=== PATIENT | male | born 1955 | race Caucasian/White ===

== ENCOUNTER 2017-09-03 02:40 | Emergency (ER) | payer OTHER ==
[~2017-09-03] VITALS: Ht 170.2 cm; Wt 99.8 kg
[2017-09-03 03:01] VITALS: BP 123/79
--- NOTE | 2017-09-03 03:30 | NUR ---
62 Y/O F W/C/O FREQUENCY/URGENCY WITH URINATION, AND HEMATURIA X YESTERDAY. DENIES ANY MED HX. NO OTHER S/S OF DISTRESS NOTED. ER MADE AWARE.
--- NOTE | 2017-09-03 03:33 | NUR ---
PT TAKEN TO BED 12
[2017-09-03] MEDS ORDERED: PHENAZOPYRIDINE 100 MG TAB PO ONE (03:45)
[2017-09-03] MEDS ORDERED: LEVOFLOXACIN 750 MG/D5W PREMIX 150 ML IV ONE (03:55)
[2017-09-03] MEDS ORDERED: NACL 0.9% 1,000 ML IV ONE (03:55)
[2017-09-03 04:30] LABS: HEMATOCRIT 40.3 % (36-52); HEMOGLOBIN 13.7 g/dL (12.0-18.0); MEAN CORPUSCULAR HEMOGLOBIN 30 pg (27-31); MEAN CORPUSCULAR HGB CONC 34 g/dL (33-37); MEAN CORPUSCULAR VOLUME 87 fL (80-94); PLATELET COUNT (AUTO) 164 K/uL (140-450); RED BLOOD CELL COUNT(AUTO) 4.62 MIL/uL (4.20-6.10); WHITE BLOOD COUNT (AUTO) 15.8 K/uL (4.8-10.8)
[2017-09-03 04:44] LABS: ANION GAP 9.9 (8-16); CARBON DIOXIDE 27.3 mmol/L (21-32); CREATININE 1.1 mg/dL (0.7-1.3); POTASSIUM 3.2 mmol/L (3.5-5.1)
[2017-09-03 04:55] LABS: PROTHROMBIN TIME 10.3 secs (10.8-13.4)
[2017-09-03 04:57] LABS: BILIRUBIN,URINE 1+ (NEGATIVE); BLOOD, URINE 3+ (NEGATIVE); LEUKOCYTE ESTERASE ,URINE NEGATIVE (NEGATIVE); NITRITE, URINE NEGATIVE (NEGATIVE); PH,URINE 5.5 (5.0-9.0); UGLUCOSE NEGATIVE (NEGATIVE)
[2017-09-03 04:58] LABS: LYMPHOCYTES % (MANUAL) 14 % (20-46); MONOCYTES % (MANUAL) 5 % (5-12)
[2017-09-03 05:15] LABS: APPEARANCE,URINE BLOODY (CLEAR); COLOR,URINE BLOODY (YELLOW)
[2017-09-03 05:17] LABS: RBC,URINE TOO NUMEROUS TO COUN /HPF (0-5)
[2017-09-03 05:18] LABS: WBC,URINE TOO MANY TO COUNT /HPF (0-5)
--- NOTE | 2017-09-03 06:10 | NUR ---
ENDING TIME FOR LEVOFLOXACIN WAS 0610, AND NS 0610 TOTAL VOLUME INFUSED 220.
[2017-09-03 06:35] VITALS: BP 111/67
--- NOTE | 2017-09-03 06:35 | NUR ---
Patient discharged with v/s stable. Written and verbal after care instructions given and explained. Patient alert, oriented and verbalized understanding of instructions. Ambulatory with steady gait. All questions addressed prior to discharge. ID band removed. Patient advised to follow up with PMD. Rx of Cipro and Pyridium given. Patient educated on indication of medication including possible reaction and side effects. Opportunity to ask questions provided and answered.
[2017-09-03] MEDS ORDERED: ASPI325T49 PO (21:18)
[2017-09-03] MEDS ORDERED: METF500T PO (21:18)
[2017-09-03] MEDS ORDERED: METO50TE2 PO (21:18)
[2017-09-03] MEDS ORDERED: LISI-420 PO (21:25)
[2017-09-03] MEDS ORDERED: ASPI81EC97 PO (21:25)
[2017-09-03] MEDS ORDERED: CIPR500T4 PO (21:25)
[2017-09-03] MEDS ORDERED: PHEN-1749 PO (21:25)
[2017-09-03] MEDS ORDERED: ZONI50CA2 PO (21:25)
[2017-09-03] MEDS ORDERED: ORE25 PO (21:25)
[2017-09-03] MEDS ORDERED: SYN.05 PO (21:25)
[2017-09-03] MEDS ORDERED: PAM25 PO (21:25)
== END 2017-09-03 06:35 | disposition home or self-care (01) ==
LOC: MED 02:40
DX: N30.81 Other cystitis with hematuria (principal); Z79.899 Other long term (current) drug therapy; Z79.82 Long term (current) use of aspirin; Z79.84 Long term (current) use of oral hypoglycemic drugs
CPT/HCPCS: 36415; 80048; 81001; 82948; 85025; 85610; 85730; 87086; 87186; 96365; 96366; 99285; J1956; J7030; 99284

== ENCOUNTER 2017-09-03 13:09 | Inpatient (IN) | payer OTHER ==
[~2017-09-03] VITALS: Ht 170.2 cm; Wt 98.5 kg
[2017-09-03 14:01] VITALS: BP 115/75
--- NOTE | 2017-09-03 17:19 | NUR ---
PATIENT TO BED #10 VIA W/C WITH
--- NOTE | 2017-09-03 17:40 | NUR ---
PATIENT SEEN EARLIER IN THE AM FOR BLOOD IN THE URINE, INSTRUCTED TO COME BACK FOR FEVER, SOB, SHAKINESS, BURNING URINATION 02/15; HX; HTN, DM, RX; PHENAZOPYRIDINE, CIPRO, METROPOLOL, METFORMIN, ASPIRIN, LEVOTHYROXINE, LISINOPRIL. PT STATES TOOK CIPRO AND PHENACOPYRIDINE AT 1100 . AAOX4 WITH EVEN AND STEADY GAIT; LUNGS CLEAR BL; HR EVEN AND REGULAR; SOB NOTED, DENIES CHEST PAIN, NAUSEA NOTED, SKIN IS PINK/WARM/DRY; TEMP 99.6F AT THIS TIME, ST ON MONITOR. PATIENT POSITIONED FOR COMFORT; HOB ELEVATED; BEDRAILS UP X2; BED DOWN. ER MD MADE AWARE OF PT STATUS.
[2017-09-03] MEDS ORDERED: NACL 0.9% 2,000 ML IV ONE (18:45)
--- NOTE | 2017-09-03 18:52 | NUR ---
XRAY AT BEDSIDE
--- NOTE | 2017-09-03 19:15 | NUR ---
REPORT GIVEN TO CJ RENEE AT BEDSIDE, PT IS IN STABLE CONDITION AT THIS TIME.
[2017-09-03] MEDS ORDERED: cefTRIAXone 1,000 MG VIAL ONE (19:36)
[2017-09-03 19:45] LABS: HEMATOCRIT 40.8 % (36-52); HEMOGLOBIN 13.8 g/dL (12.0-18.0); MEAN CORPUSCULAR HEMOGLOBIN 29 pg (27-31); MEAN CORPUSCULAR HGB CONC 34 g/dL (33-37); MEAN CORPUSCULAR VOLUME 85 fL (80-94); PLATELET COUNT (AUTO) 154 K/uL (140-450); RED BLOOD CELL COUNT(AUTO) 4.77 MIL/uL (4.20-6.10); RED CELL DISTRIBUTION WIDTH 12.6 % (11.6-13.7); WHITE BLOOD COUNT (AUTO) 17.8 K/uL (4.8-10.8)
[2017-09-03 20:10] LABS: APPEARANCE,URINE CLEAR (CLEAR); BILIRUBIN,URINE NEGATIVE (NEGATIVE); BLOOD, URINE 2+ (NEGATIVE); COLOR,URINE YELLOW (YELLOW); LEUKOCYTE ESTERASE ,URINE NEGATIVE (NEGATIVE); NITRITE, URINE POSITIVE (NEGATIVE); UGLUCOSE TRACE (NEGATIVE)
[2017-09-03 20:11] LABS: ALBUMIN 3.8 g/dL (3.4-5.0); ANION GAP 14.7 (8-16); CARBON DIOXIDE 23.2 mmol/L (21-32); CREATININE 1.1 mg/dL (0.7-1.3); TOTAL BILIRUBIN 1.3 mg/dL (0.0-1.0)
[2017-09-03 20:12] LABS: LYMPHOCYTES % (MANUAL) 6 % (20-46); MONOCYTES % (MANUAL) 4 % (5-12)
--- NOTE | 2017-09-03 20:17 | NUR ---
CRITICAL LAB RESULTS RECEIVED. TROPONIN=0.113 AND K=2.9. DR. PITTMAN MADE AWARE.
[2017-09-03 20:19] LABS: POTASSIUM 2.9 mmol/L (3.5-5.1)
[2017-09-03 20:20] LABS: CREATINE KINASE MB 0.9 ng/mL (0-3.6)
[2017-09-03 20:28] LABS: RBC,URINE 3-10 (FEW) /HPF (0-5)
[2017-09-03] MEDS: NACL 0.9% 1,000 ML IV SCH (20:58)
[2017-09-03] MEDS ORDERED: HYDROcodone/APAP 5/325 MG 1 TAB TAB PO PRN ×2 (21:00)
[2017-09-03] MEDS ORDERED: ONDANSETRON 4 MG/2 ML VIAL IVP PRN (21:00)
[2017-09-03] MEDS ORDERED: METF500T PO (21:18)
[2017-09-03] MEDS ORDERED: METO50TE2 PO (21:18)
[2017-09-03] MEDS ORDERED: ASPI325T49 PO (21:18)
--- NOTE | 2017-09-03 21:20 | NUR ---
PT TAKEN TO CT VIA W/C.
[2017-09-03] MEDS ORDERED: LISI-420 PO (21:25)
[2017-09-03] MEDS ORDERED: CIPR500T4 PO (21:25)
[2017-09-03] MEDS ORDERED: SYN.05 PO (21:25)
[2017-09-03] MEDS ORDERED: PAM25 PO (21:25)
[2017-09-03] MEDS ORDERED: ASPI81EC97 PO (21:25)
[2017-09-03] MEDS ORDERED: ZONI50CA2 PO (21:25)
[2017-09-03] MEDS ORDERED: PHEN-1749 PO (21:25)
[2017-09-03] MEDS ORDERED: ORE25 PO (21:25)
--- NOTE | 2017-09-03 21:40 | NUR ---
Patient will be admitted to care of DR. CAMP. Admited to TELEMETRY. Will go to room 112A. Belongings list completed. BED SIDE REPORT GIVEN TO CJ SOUZA. AT BED SIDE. PT WITHOUT ACUTE DISTRESS AT THIS TIME.
[2017-09-03 21:50] VITALS: BP 126/64
--- NOTE | 2017-09-03 21:50 | NUR ---
PT ARRIVED ON THE UNIT VIA GURNEY, NO S/S OF DISTRESS NOTED. PT IN STABLE CONDITION. PT AAOX4, ON ROOM AIR. IV ON R HAND 20G, PATENT AND INTACT. SKIN INTACT, WARM AND DRY TO TOUCH. LUNGS CLEAR BILATERALLY, BOWEL SOUNDS PRESENT. PT CAME TO ER WITH C/O BURNING WITH URINATION AND STATED HE WAS GIVEN MEDICATION AND SENT HOME, THEN CAME BACK TO THE ER WITH C/O N/V AND FEVER. PT DX WITH UTI AND ELEVATED TROPONIN. INITIAL ASSESSMENT COMPLETED. PLAN OF CARE DISCUSSED WITH PT AT THIS TIME, VERBALIZED UNDERSTANDING. ALL SAFETY PRECAUTIONS MET, BOARD UPDATED,CALL LIGHT WITHIN REACH, WILL CONTINUE TO MONITOR.
--- NOTE | 2017-09-03 22:00 | NUR ---
PAGED DR. CAMP
--- NOTE | 2017-09-03 22:10 | NUR ---
DR. CAMP PAGED BACK, NOTIFIED HIM OF PTS POTASSIUM 2.9, NEW ORDERS TO BE PLACED, NOTIFIED HIM OF PTS HOME MEDS, AND NOTIFIED HIM THAT PT IS DIABETIC WITH NO ACCUCHECKS OR SLIDING SCALE IN PLACE, AND NO DIABETIC DIET. NEW ORDERS TO BE PUT IN.
[2017-09-03] MEDS ORDERED: KCL 20 MEQ/WATER INJ PREMIX 200 ML IV SCH (22:35)
[2017-09-03] MEDS ORDERED: NORTRIPTYLINE 25 MG CAP PO SCH (23:00)
--- NOTE | 2017-09-03 23:14 | NUR ---
PT STATES, "I DO NOT WANT TO TAKE MY NORTRIPTYLINE NOW, I WILL TAKE IT AFTER I EAT MY SANDWICH.
--- NOTE | 2017-09-03 23:45 | NUR ---
PT DOES NOT WANT TO TAKE NORTRIPTYLINE ANYMORE TONIGHT, PT REFUSES MED.
--- NOTE | 2017-09-04 01:30 | NUR ---
PT RESTING COMFORTABLY IN BED, NO S/S OF DISTRESS NOTED. K RIDER INFUSING, PT TOLERATING WELL
--- NOTE | 2017-09-04 03:30 | NUR ---
K RIDER FINISHED INFUSING. PT TOLERATED WELL, NO S/S OF DISTRESS NOTED
[2017-09-04 04:00] VITALS: BP 128/68
[2017-09-04] MEDS: BLOOD GLUCOSE MONITORING 1 DEV DEV FS SCH ×4 (06:34→21:00)
[2017-09-04] MEDS: NACL 0.9% 1,000 ML IV SCH ×4 (06:35→22:39)
--- NOTE | 2017-09-04 07:05 | NUR ---
RECEIVED PATIENT REPORT AT BEDSIDE. PATIENT AWAKE, ALERT AND ORIENTED. NO S/S OF DISTRESS NOTED. NO C/O PAIN AT THIS TIME. IV LINE NOTED TO THE RIGHT HAND WITH IVF INFUSING WELL. PATIENT ON TELE MONITORING. BED LOWERED WITH CALL LIGHT WITHIN REACH. WILL CONTINUE TO MONITOR
--- NOTE | 2017-09-04 07:23 | NUR ---
REPORT GIVEN TO SYDNI CORONA FOR CONTINUITY OF CARE, PT IN STABLE CONDITION
[2017-09-04] MEDS ORDERED: INSULIN LISPRO SLIDING SCALE 100 UNITS/ML VIAL SUBQ PRN (07:30)
[2017-09-04] MEDS ORDERED: DEXTROSE 50% 50 ML SYR IVP PRN (07:30)
[2017-09-04 08:00] VITALS: BP 122/77
--- NOTE | 2017-09-04 08:45 | NUR ---
ADMINISTERED SCHEDULED MEDICATIONS. PATIENT TOLERATED WELL
[2017-09-04 08:54] LABS: BASOPHILS # (AUTO) 0.1 K/uL (0.00-0.22); BASOPHILS % (AUTO) 1.1 % (0.0-2.0); EOSINOPHILS # (AUTO) 0.1 K/uL (0-0.4); HEMATOCRIT 37.5 % (36-52); HEMOGLOBIN 12.7 g/dL (12.0-18.0); LYMPHOCYTES # (AUTO) 0.7 K/uL (2.0-11.5); LYMPHOCYTES % (AUTO) 5.5 % (20.5-51.1); MEAN CORPUSCULAR HEMOGLOBIN 30 pg (27-31); MEAN CORPUSCULAR HGB CONC 34 g/dL (33-37); MEAN CORPUSCULAR VOLUME 88 fL (80-94); MONOCYTES # (AUTO) 1.1 K/uL (0.8-1.0); NEUTROPHILS # (AUTO) 10.6 K/uL (1.8-7.7); NEUTROPHILS % (AUTO) 83.4 % (42.2-75.2); PLATELET COUNT (AUTO) 132 K/uL (140-450); RED BLOOD CELL COUNT(AUTO) 4.26 MIL/uL (4.20-6.10); RED CELL DISTRIBUTION WIDTH 13.2 % (11.6-13.7); WHITE BLOOD COUNT (AUTO) 12.6 K/uL (4.8-10.8)
--- NOTE | 2017-09-04 08:54 | NUR ---
PATIENT HAS BEEN SCREENED AND CATEGORIZED MODERATE NUTRITION RISK. PATIENT WILL BE SEEN WITHIN 3-5 DAYS OF ADMISSION. 09/05/17-09/07/[address]
[2017-09-04] MEDS: ASPIRIN 81 MG TAB.CHEW PO SCH (09:00)
[2017-09-04] MEDS: METOPROLOL 50 MG TAB PO SCH ×2 (09:01→21:10)
[2017-09-04 09:41] LABS: ALBUMIN 3.4 g/dL (3.4-5.0); ANION GAP 15.8 (8-16); CARBON DIOXIDE 22.8 mmol/L (21-32); CREATININE 0.9 mg/dL (0.7-1.3); POTASSIUM 3.6 mmol/L (3.5-5.1)
[2017-09-04 16:00] VITALS: BP 137/82
--- NOTE | 2017-09-04 16:45 | NUR ---
PATIENT AMBULATING AROUND THE UNIT. NO S/S OF DISTRESS NOTED
[2017-09-04] MEDS: ACETAMINOPHEN 325 MG TAB PO PRN (19:12)
--- NOTE | 2017-09-04 19:22 | NUR ---
PATIENT REPORT GIVEN AT BEDSIDE. PATIENT ENDORSED IN STABLE CONDITION
--- NOTE | 2017-09-04 19:26 | NUR ---
PT RECEIVED IN BED. SHIFT ASSESSMENT DONE AND DOCUMENTED. PLAN OF CARE DISCUSSED. PT HAS NO COMPLAINTS AT THIS TIME. PT RECEIVED IN STABLE CONDITION.
[2017-09-04] MEDS ORDERED: NORTRIPTYLINE 25 MG CAP PO SCH (21:00)
--- NOTE | 2017-09-04 21:07 | NUR ---
REASSESSED PT TEMP PREVIOUSLY ELEVATED AT 102.6 AT 1999. RECHECK SHOWED DECREASE AT 99.1 AT 2106. MEDICATED PATIENT TOLERATED WELL. WILL CONTINUE TO MONITOR PT.
[2017-09-04 23:51] VITALS: BP 122/86
--- NOTE | 2017-09-04 23:57 | NUR ---
PATIENT ASLEEP IN BED. NO S/S OF DISTRESS NOTED
[2017-09-05] MEDS: BLOOD GLUCOSE MONITORING 1 DEV DEV FS SCH ×2 (06:34→11:55)
--- NOTE | 2017-09-05 07:15 | NUR ---
ASSUMED CONTINUITY OF CARE. NO SIGNS AND SYMPTOMS OF ACUTE DISTRESS NOTED. INITIAL ASSESSMENT DONE. KEEP COMFORTABLE ON BED. EXPLAINED DIAGNOSIS, PLAN OF CARE, PAIN MANAGEMENT TEACHING, USE OF CALL LIGHT/BED/TV/BATHROOM. VERBALIZED UNDERSTANDING. CALL LIGHT WITHIN REACH.
--- NOTE | 2017-09-05 07:23 | NUR ---
GAVE PATIENT REPORT AT BEDSIDE TO DAY NURSE, PATIENT ENDORSED IN STABLE CONDITION. NO S/S OF DISTRESS VOICED BY PT.
--- NOTE | 2017-09-05 07:55 | NUR ---
DR. HERNANDEZ CAME, REVIEWED PT. CHART AND SEEN PT..
[2017-09-05 08:00] VITALS: BP 148/99
[2017-09-05] MEDS: ASPIRIN 81 MG TAB.CHEW PO SCH (08:35)
[2017-09-05] MEDS: METOPROLOL 50 MG TAB PO SCH (08:36)
[2017-09-05] MEDS ORDERED: LEVO750T2 PO (09:46)
[2017-09-05] MEDS ORDERED: DOCU-299 PO (09:47)
[2017-09-05 09:52] LABS: BASOPHILS % (AUTO) 0.4 % (0.0-2.0); EOSINOPHILS % (AUTO) 0.2 % (0.0-4.0); HEMATOCRIT 36.6 % (36-52); HEMOGLOBIN 12.6 g/dL (12.0-18.0); LYMPHOCYTES # (AUTO) 0.7 K/uL (2.0-11.5); LYMPHOCYTES % (AUTO) 9.1 % (20.5-51.1); MEAN CORPUSCULAR HEMOGLOBIN 30 pg (27-31); MEAN CORPUSCULAR HGB CONC 34 g/dL (33-37); MEAN CORPUSCULAR VOLUME 87 fL (80-94); MONOCYTES % (AUTO) 12.7 % (1.7-9.3); NEUTROPHILS # (AUTO) 6.5 K/uL (1.8-7.7); NEUTROPHILS % (AUTO) 77.6 % (42.2-75.2); PLATELET COUNT (AUTO) 137 K/uL (140-450); RED BLOOD CELL COUNT(AUTO) 4.22 MIL/uL (4.20-6.10); RED CELL DISTRIBUTION WIDTH 13.2 % (11.6-13.7); WHITE BLOOD COUNT (AUTO) 8.2 K/uL (4.8-10.8)
--- NOTE | 2017-09-05 10:00 | NUR ---
WENT TO BATHROOM WITHOUT ASSISTANCE. TOLERATED WELL. HAD STEADY GAIT AND BALANCE.
[2017-09-05 10:13] LABS: ALBUMIN 3.5 g/dL (3.4-5.0); CARBON DIOXIDE 20.7 mmol/L (21-32); CREATININE 0.9 mg/dL (0.7-1.3); POTASSIUM 3.7 mmol/L (3.5-5.1); TOTAL BILIRUBIN 0.8 mg/dL (0.0-1.0)
--- NOTE | 2017-09-05 10:50 | NUR ---
FAXED INITIAL REVIEW TO [facility] [phone] PHONE PATRICE [phone]
[2017-09-05 12:00] VITALS: BP 132/87
[2017-09-05] MEDS: ACETAMINOPHEN 325 MG TAB PO PRN (12:16)
--- NOTE | 2017-09-05 13:00 | NUR ---
EXPLAINED TO PT. AND PT. ABOUT MD D/C ORDER, D/C INSTRUCTIONS AND TEACHING, MD FOLLOW-UP, MD D/C PRESCRIPTION LIST EDUCATION, DIET, DISEASE MANAGEMENT TEACHING, DM TEACHING. VERBALIZED UNDERSTANDING.
--- NOTE | 2017-09-05 13:45 | NUR ---
D/C HOME VIA WHEELCHAIR ACCOMPANIED BY PT. . AWAKE, ALERT, AND ORIENTED X4. SPEECH CLEAR. NO C/O PAIN. NO SOB, NOTED. IN STABLE CONDITION. INFORMED CHARGE NURSE LUISITO CHOWDARY.
== END 2017-09-05 13:45 | disposition home or self-care (01) | DRG 720 ==
LOC: MED 13:09 → MTU 20:16
PROVIDERS: ADMIT Hospitalist; ATTEND Hospitalist
DX: A41.9 Sepsis, unspecified organism (principal); E87.1 Hypo-osmolality and hyponatremia; I10 Essential (primary) hypertension; N39.0 Urinary tract infection, site not specified; E11.9 Type 2 diabetes mellitus without complications; K59.00 Constipation, unspecified; R79.89 Other specified abnormal findings of blood chemistry; J06.9 Acute upper respiratory infection, unspecified; E87.6 Hypokalemia; E66.9 Obesity, unspecified; Z68.34 Body mass index [BMI] 34.0-34.9, adult; Z79.899 Other long term (current) drug therapy; Z90.49 Acquired absence of other specified parts of digestive tract
CPT/HCPCS: 36415; 71045; 80053; 81001; 82550; 82553; 82948; 83605; 83690; 84484; 85025; 87040; 87081; 87086; 99285; J0696; J1644; J1815; J3480; J7030; J7060; Q0092

== ENCOUNTER 2018-08-16 13:07 | Emergency (ER) | payer OTHER ==
[~2018-08-16] VITALS: Ht 165.1 cm; Wt 97.6 kg
[~2018-08-16 13:07] MED LIST: ASPI-1205 PO; ASPI81EC97 PO; CIPR500T4 PO; DOCU-299 PO; LEVO750T2 PO; LISI-420 PO; METF500T PO; METO50TE2 PO; ORE25 PO; PAM25 PO; PHEN-1749 PO; SYN.05 PO; ZONI50CA2 PO
[2018-08-16 13:27] VITALS: BP 121/95
--- NOTE | 2018-08-16 15:12 | NUR ---
63 yo m bib self w/ c/o low back pain x 1 week. pt reports this is chronic w/ hx stenosis of the spine. worse on the left side, not effected by norco. amb w/ steady gait w/ cane. denies recent injury. denies n/v/d or difficulty w/ bm. aaox4. hx dm, htn, stenosis rx cymbalta, lisinopril, tamsulin, asa, metoprolol, metformin, atorvastatin
[2018-08-16] MEDS ORDERED: LORazepam 2 MG/ML VIAL IM ONE (15:40)
[2018-08-16] MEDS ORDERED: MORPHINE SULFATE 4 MG/ML SYR IM ONE (15:40)
[2018-08-16 16:09] VITALS: BP 121/95
--- NOTE | 2018-08-16 16:10 | NUR ---
Patient discharged with v/s stable. Written and verbal after care instructions given and explained. Patient verbalized understanding. Ambulatory with steady gait. All questions addressed prior to discharge. Advised to follow up with PMD.
== END 2018-08-16 16:10 | disposition home or self-care (01) ==
LOC: MED 13:07
DX: G89.29 Other chronic pain (principal); M54.5 Low back pain; E11.9 Type 2 diabetes mellitus without complications; I10 Essential (primary) hypertension; Z79.82 Long term (current) use of aspirin; Z79.2 Long term (current) use of antibiotics; Z79.84 Long term (current) use of oral hypoglycemic drugs; Z79.899 Other long term (current) drug therapy
CPT/HCPCS: 96372; 99283; J2060; J2270